=== PATIENT | female | born 1965 | race Caucasian/White ===

== ENCOUNTER → 2017-05-28 | Outpatient (CLI) | payer OTHER ==
[~2017-05-28] MED LIST: ACETAMINOPHEN PO; ALBUTEROL17 GM INH; ASPIRIN PO; ASPIRIN81 M1 PO; CRESTOR PO; HCTZ PO; LEVAQUIN PO; METOPROLOL TAR25 MG DOB; NABUMETONE PO; NAPROSYN500 MG PO; NEURONTIN300 MG PO; NO MEDICATIONS; PHENERGAN PO; PRINIVIL5 MG PO; PRO AIR INH; ROBAXIN500 MG PO; SYNTHROID0.05 MG PO; TESSALON PERLE100 M1 PO; TYLENOL #3 PO; VOLTAREN50 MG PO; VOLTAREN75 MG PO; ZITHROMAX PO
--- NOTE | ~2017-05-28 | MR113 ---
[facility] A Service of [facility] & [facility] RADIOLOGY TEXT RESULTS PATIENT: DIPTI OLMEDO LOCATION: [facility] : 63 UNIT #: [id number] AGE: [address]: Richy Doctor NOT IN SYSTEM SEX: F ORDER DR: [id number] [facility] [address] [place], [place] [address] [id number] O MR#: [id number] Acc #: [id number] NAME: DIPTI OLMEDO. : 1965 SEX: F STUDY DATE/TIME: 05/28/2017 10:36 UNIT: [facility] ROOM: STUDY DESCRIPTION: MR Lumbar Wo Contrast Attending Physician: Generic Doctor Not In System Referring Physician: Richy Doctor Not In System Ordering Physician: Tricia Patel Primary Care Physician: Chandu Michele M.D. MRI CENTER REPORT This report is preliminary unless electronic signature is present. EXAM MRI of the lumbar spine without contrast dated 05/28/2017. COMPARISON CT abdomen and pelvis dated 11/14/2007. HISTORY Low back pain with right hip pain for 2 months. FINDINGS Multisequence, multiplanar imaging of the lumbar spine was obtained without contrast. Vertebral body heights and alignment are preserved. Degenerative disc signal loss is seen at multiple levels, particularly at L4-5 and L5-S1. Conus terminates at L1. Signal of conus and cauda equina are within normal limits. Pre- and paravertebral soft tissues do not demonstrate any significant abnormality. L1-2: Concentric disc bulge with mild bilateral facet changes. Borderline size canal is noted without significant neural foraminal narrowing. L2-3: Mild disc bulge with tywj-ys-yzyieaai right and mild left facet hypertrophic change. Borderline size canal. No neural foraminal narrowing. L3-4: Concentric disc bulge with superimposed central protrusion with annular fissure. Moderate right and ouilzwjg-hd-lixnjo left facet hypertrophic changes are noted with mild canal stenosis. No significant neural foraminal narrowing. L4-5: Concentric disc bulge with superimposed xpcok-fi-ghlq central protrusion with annular fissure. Moderate bilateral facet hypertrophic changes are noted with moderate canal stenosis. Mild bilateral lateral [facility] A Service of [facility] & [facility] RADIOLOGY TEXT RESULTS PATIENT: DIPTI OLMEDO LOCATION: [facility] : 63 UNIT #: [id number] AGE: [address]: Generic Doctor NOT IN SYSTEM SEX: F ORDER DR: recess encroachment is seen with mild bilateral inferior neural foraminal narrowing. L5-S1: Concentric disc bulge is seen with superimposed small wnbjh-dq-gwjw central protrusion extending towards bilateral subarticular regions with annular fissure. It touches bilateral S1 nerve roots. Mild inferior bilateral neural foraminal narrowing are noted. No significant canal stenosis. IMPRESSION 1. Multilevel degenerative changes are noted in the lumbar spine particularly from L3-4 to L5-S1 as described above. 2. Canal stenosis is seen at L4-5, and to a lesser degree at L3-4. 3. There appears to be mild bilateral L4-5 and L5-S1 lateral recess stenosis. Mild inferior bilateral neural foraminal associated narrowing is probably present particularly at bilateral L4-5. Dictated by... Linda Bethea M.D. THIS IS AN ELECTRONICALLY VERIFIED REPORT Linda Bethea M.D. at 06/03/2017 7:24 PM CPR/psc TD: 05/28/2017 20:38 JOB #: [id number] MRI CENTER REPORT Page 1 of 1 COPY
== END | disposition home or self-care (01) ==
LOC: CMRI 08:59
DX: M47.26 Other spondylosis with radiculopathy, lumbar region (principal); R09.89 Other specified symptoms and signs involving the circulatory and respiratory systems; R93.8 Abnormal findings on diagnostic imaging of other specified body structures; M54.31 Sciatica, right side; M47.27 Other spondylosis with radiculopathy, lumbosacral region; M48.06 Spinal stenosis, lumbar region
CPT/HCPCS: 72148